=== PATIENT | male | born 1975 | race African-American/Black ===

== ENCOUNTER 2016-12-05 09:47 | Emergency (ER) | payer BC, OTHER ==
[2016-12-05] MEDS ORDERED: Sodium Chloride 0.9% 10 ML Syringe FLUSH PRN (10:05)
[2016-12-05] MEDS ORDERED: Aspirin 81 MG Tab.Chew PO ONE (10:05)
--- NOTE | 2016-12-05 11:07 | EDM.PDOC ---
ED HPI GENERAL MEDICAL PROBLEM - General Chief Complaint: Upper Extremity Injury/Pain Stated Complaint: R SIDE ARM/CHEST AND SHOULDER PAIN Time Seen by Provider: 12/05/16 09:57 Source of Information: Reports: Patient History Limitations: Reports: No Limitations - History of Present Illness INITIAL COMMENTS - FREE TEXT/NARRATIVE: The patient presents with right chest, shoulder and arm pain. This started on Monday and has gotten worse over the weekend. He was working with that arm on Monday and feel he pulled something. He has no shortness of breath, cough, fever, chills, abdominal pain, nausea or vomiting. He has no cardiac history and he has no history of HTN. Onset: Gradual Duration: Day(s): (4) Location: Reports: Chest, Upper Extremity, Right Quality: Reports: Sharp Severity: Moderate Improves with: Reports: None Worsens with: Reports: Movement Context: Reports: Activity (He was working hard on Monday) Associated Symptoms: Reports: Chest Pain. Denies: Cough, Fever/Chills, Nausea/ Vomiting, Shortness of Breath Right Arm Pain Score (Numeric/FACES): 7 - Related Data Allergies Allergy/AdvReac Type Severity Reaction Status Date / Time No Known Allergies Allergy Verified 12/05/16 09:53 Home Meds: Home Meds Cyclobenzaprine [Flexeril] 10 mg PO TID PRN #20 tablet 12/05/16 [Rx] Naproxen [Naprosyn] 500 mg PO Q12HR PRN #20 tablet 12/05/16 [Rx] Past Medical History - Past Health History Medical/Surgical History: Denies Medical/Surgical History Social & Family History - Tobacco Use Smoking Status *Q: Never Smoker Second Hand Smoke Exposure: No - Caffeine Use Caffeine Use: Reports: Coffee - Alcohol Use Days Per Week of Alcohol Use: 0 - Recreational Drug Use Recreational Drug Use: No Review of Systems - Review of Systems Review Of Systems: See Below Constitutional: Reports: No Symptoms Eyes: Reports: No Symptoms Ears: Reports: No Symptoms Nose: Reports: No Symptoms Mouth/Throat: Reports: No Symptoms Respiratory: Reports: No Symptoms Cardiovascular: Reports: Chest Pain GI/Abdominal: Reports: No Symptoms Genitourinary: Reports: No Symptoms Musculoskeletal: Reports: Shoulder Pain (Right), Other (Right arm pain) ED EXAM, GENERAL - Physical Exam Exam: See Below Exam Limited By: No Limitations General Appearance: Alert, No Apparent Distress Ears: Normal External Exam Nose: Normal Inspection Head: Atraumatic, Normocephalic Neck: Normal Inspection Respiratory/Chest: No Respiratory Distress, Lungs Clear, Normal Breath Sounds Cardiovascular: Regular Rate, Rhythm, No Edema, No Murmur, Other (Pain upon palpation to the right chest) GI/Abdominal: Soft, Non-Tender, No Organomegaly, No Mass Back Exam: Normal Inspection Extremities: Other (Pain upon palpation to the right shoulder and upper arm) Course - Vital Signs Last Recorded V/S: Last Vital Signs Temp 97.5 F 12/05/16 09:53 Pulse 65 12/05/16 09:53 Resp 19 12/05/16 09:53 BP 147/84 H 12/05/16 09:53 Pulse Ox 99 12/05/16 09:53 - Orders/Labs/Meds Orders: Active Orders 24 hr Category Date Time Status Cardiac Monitoring [RC] . DIRECTED Care 12/05/16 10:05 Active EKG 12 Lead [EKG Documentation Completion] [RC] STAT Care 12/05/16 10:01 Active Peripheral IV Care [RC] . DIRECTED Care 12/05/16 10:06 Active Chest 2V [CR] Stat Exams 12/05/16 10:06 Taken Sodium Chloride 0.9% [Saline Flush] Med 12/05/16 10:05 Active 10 ml FLUSH ASDIRECTED PRN Peripheral IV Insertion Adult [OM.PC] Stat Oth 12/05/16 10:05 Ordered Medication Orders Sodium Chloride (Saline Flush) 10 ml FLUSH ASDIRECTED PRN PRN Reason: Keep Vein Open Last Admin: 12/05/16 10:18 Dose: 10 ml Labs: Laboratory Tests 12/05/16 12/05/16 Range/Units 09:55 09:55 WBC 9.72 H (4.23-9.07) K/mm3 RBC 5.30 (4.63-6.08) M/mm3 Hgb 16.0 (13.7-17.5) gm/L Hct 44.5 (40.1-51.0) % MCV 84.0 (79.0-92.2) fl MCH 30.2 (25.7-32.2) pg MCHC 36.0 H (32.2-35.5) g/dl RDW Std Deviation 41.2 (35.1-43.9) fL Plt Count 251 (163-337) K/mm3 MPV 10.0 (9.4-12.3) fl Neut % (Auto) 60.4 (34.0-67.9) % Lymph % (Auto) 32.1 (21.8-53.1) % Foard % (Auto) 4.6 L (5.3-12.2) % Eos % (Auto) 2.5 (0.8-7.0) Baso % (Auto) 0.2 (0.1-1.2) % Neut # (Auto) 5.87 H (1.78-5.38) K/mm3 Lymph # (Auto) 3.12 (1.32-3.57) K/mm3 Foard # (Auto) 0.45 (0.30-0.82) K/mm3 Eos # (Auto) 0.24 (0.04-0.54) K/mm3 Baso # (Auto) 0.02 (0.01-0.08) K/mm3 Sodium 136 (136-145) mEq/L Potassium 3.5 (3.5-5.1) mEq/L Chloride 102 (98-107) mEq/L Carbon Dioxide 27 (21-32) mEq/L Anion Gap 10.5 (5-15) BUN 11 (7-18) mg/dL Creatinine 1.2 (0.7-1.3) mg/dL Est Cr Clr Drug Dosing 87.15 mL/min Estimated GFR (MDRD) > 60 (>60) mL/min BUN/Creatinine Ratio 9.2 L (14-18) Glucose 147 H (74-106) mg/dL Calcium 9.6 (8.5-10.1) mg/dL Total Bilirubin 0.5 (0.2-1.0) mg/dL AST 30 (15-37) U/L ALT 48 (16-63) U/L Alkaline Phosphatase 88 (46-116) U/L Troponin I < 0.017 (0.00-0.056) ng/mL Total Protein 8.3 H (6.4-8.2) g/dl Albumin 4.1 (3.4-5.0) g/dl Globulin 4.2 gm/dL Albumin/Globulin Ratio 1.0 (1-2) Meds: Medications Generic Name Dose Route Start Last Admin Trade Name Marion PRN Reason Stop Dose Admin Sodium Chloride 10 ml 12/05/16 10:05 12/05/16 10:18 Saline Flush FLUSH 10 ml ASDIRECTED PRN Administration Keep Vein Open Discontinued Medications Generic Name Dose Route Start Last Admin Trade Name Marion PRN Reason Stop Dose Admin Aspirin 324 mg 12/05/16 10:05 12/05/16 10:17 Aspirin PO 12/05/16 10:06 324 mg ONETIME ONE Administration - Re-Assessments/Exams Free Text/Narrative Re-Assessment/Exam: 12/05/16 11:06 I ordered an IV saline lock, aspirin, EKG, CXR, and labs. His CXR looks good. His EKG shows nothing acute. His CBC and CMP looks good. His troponin is negative. I will get him on a muscle relaxant and an antiinflammatory. Departure - Departure Time of Disposition: 11:10 Disposition: Home, Self-Care 01 Condition: Good Clinical Impression: Chest wall muscle strain Qualifiers: Encounter type: initial encounter Qualified Code(s): S29.011A - Strain of muscle and tendon of front wall of thorax, initial encounter Muscle strain, upper arm Qualifiers: Encounter type: initial encounter Laterality: right Qualified Code(s): S46.911A - Strain of unspecified muscle, fascia and tendon at shoulder and upper arm level, right arm, initial encounter - Discharge Information Prescriptions: Naproxen [Naprosyn] 500 mg PO Q12HR PRN #20 tablet PRN Reason: Pain Cyclobenzaprine [Flexeril] 10 mg PO TID PRN #20 tablet PRN Reason: Pain Referrals: Selma Boyd PA-C [Physician Glycerin Supervisor] - 1 Week Forms: ED Department Discharge, ED Return to Work/School Form Additional Instructions: Take the naprosyn and flexeril as needed for pain. Ice the areas that hurt a couple times per day. Follow up with Selma Boyd if you are not better. Please return if you are worse. - My Orders Last 24 Hours: My Active Orders 12/05/16 10:01 EKG 12 Lead [EKG Documentation Completion] [RC] STAT 12/05/16 10:05 Cardiac Monitoring [RC] . DIRECTED Sodium Chloride 0.9% [Saline Flush] 10 ml FLUSH ASDIRECTED PRN Peripheral IV Insertion Adult [OM.PC] Stat 12/05/16 10:06 Peripheral IV Care [RC] . DIRECTED Chest 2V [CR] Stat - Assessment/Plan Last 24 Hours: My Active Orders 12/05/16 10:01 EKG 12 Lead [EKG Documentation Completion] [RC] STAT 12/05/16 10:05 Cardiac Monitoring [RC] . DIRECTED Sodium Chloride 0.9% [Saline Flush] 10 ml FLUSH ASDIRECTED PRN Peripheral IV Insertion Adult [OM.PC] Stat 12/05/16 10:06 Peripheral IV Care [RC] . DIRECTED Chest 2V [CR] Stat
--- NOTE | 2016-12-05 11:10 | CR ---
Chest: Two views of the chest were obtained. Comparison: No previous study. Heart size and mediastinum are within normal limits. Lungs are clear. Bony structures are within normal limits for the patient's age. Impression: 1. Nothing acute is identified on two-view chest x-ray. Diagnostic code #1
[2016-12-05 11:39] VITALS: BP 141/82
== END 2016-12-05 11:20 | disposition home or self-care (01) ==
LOC: JD.ED 09:47
DX: S29.011A Strain of muscle and tendon of front wall of thorax, initial encounter (principal); S46.911A Strain of unspecified muscle, fascia and tendon at shoulder and upper arm level, right arm, initial encounter; X58.XXXA Exposure to other specified factors, initial encounter
CPT/HCPCS: 36415; 71020; 80053; 84484; 85025; 93005; 99285; A9270; J7050; 99283